=== PATIENT | female | born 1930 | race African-American/Black ===

== ENCOUNTER 2017-08-06 13:56 | Inpatient (IN) | payer MEDICARE, MEDICAID ==
[~2017-08-06] VITALS: Ht 152.4 cm; Wt 69.5 kg
[~2017-08-06 13:56] MED LIST: AMIN30LI28 PO; B CO1CAP4 PO; BRIM155OS OU; CALC1TAB92 PO; DOCU100C98 PO; GABA-529 PO; LEVO500T2 PO; PERCT PO; RISP.5 PO; SERT50TA12 PO; TRAV2.5D5 OU
[2017-08-06] MEDS ORDERED: SODIUM CHLORIDE 0.9% 1,000 ML IV ONE (14:45)
[2017-08-06 15:46] LABS: BASOPHILS # (AUTO) 0.01 K/uL (0.00-0.20); BASOPHILS % (AUTO) 0.2 % (0.0-2.0); EOSINOPHILS # (AUTO) 0.15 K/uL (0.00-0.70); EOSINOPHILS % (AUTO) 1.69 % (1.0-6.0); HEMATOCRIT 34.3 % (36-46); HEMOGLOBIN 11.5 g/dL (12.0-16.0); LYMPHOCYTES # (AUTO) 0.5 K/uL (1.0-4.8); LYMPHOCYTES % (AUTO) 5.4 % (22.0-44.0); MEAN CORPUSCULAR HEMOGLOBIN 29.4 pg (26.0-34.0); MEAN CORPUSCULAR HGB CONC 33.5 G/dL (31.0-37.0); MEAN CORPUSCULAR VOLUME 88 fL (80-100); MONOCYTES # (AUTO) 0.8 K/uL (0.1-1.0); MONOCYTES % (AUTO) 8.7 % (2.0-9.0); NEUTROPHILS # (AUTO) 7.5 K/uL (1.8-7.7); NEUTROPHILS % (AUTO) 84.1 % (40.0-70.0); PLATELET COUNT (AUTO) 105 K/uL (150-450); RED BLOOD CELL COUNT(AUTO) 3.91 MIL/uL (4.00-5.20); RED CELL DISTRIBUTION WIDTH 13.6 % (11.5-14.5)
[2017-08-06 15:58] LABS: CALCIUM, TOTAL 8.9 mg/dL (8.8-10.5); CREATININE 3.56 mg/dL (0.60-1.30); POTASSIUM 4.2 mmol/L (3.5-5.1)
[2017-08-06 16:03] LABS: ALBUMIN 3.7 g/dL (3.4-5.0); BILIRUBIN,TOTAL 0.7 mg/dL (0.1-1.0); TOTAL PROTEIN, SERUM 7.6 g/dL (6.4-8.2)
[2017-08-06] MEDS ORDERED: ACETAMINOPHEN 325 MG TABLET PO PRN (17:15)
[2017-08-06] MEDS ORDERED: ONDANSETRON HCL 4 MG/2 ML VIAL IVP PRN (17:15)
[2017-08-06] MEDS ORDERED: 0.9% SODIUM CHLORIDE 10 ML SYRINGE IVP PRN (17:15)
[2017-08-06 17:49] LABS: WHITE BLOOD COUNT (AUTO) 9.5 K/uL (4.5-11.0)
[2017-08-06 20:18] VITALS: BP 126/63
[2017-08-06] MEDS ORDERED: CINA30 PO (22:56)
[2017-08-06] MEDS ORDERED: CHOL100034 PO (22:56)
[2017-08-06] MEDS ORDERED: RISP0.5T61 PO (22:56)
[2017-08-06] MEDS ORDERED: CRAN450C PO (22:56)
[2017-08-06] MEDS ORDERED: CLON0.1T PO (22:56)
[2017-08-07 00:36] VITALS: BP 108/42
[2017-08-07 05:44] VITALS: BP 108/61
[2017-08-07 06:54] LABS: BASOPHILS % (AUTO) 0.3 % (0.0-2.0); EOSINOPHILS % (AUTO) 2.7 % (1.0-6.0); HEMOGLOBIN 10.5 g/dL (12.0-16.0); LYMPHOCYTES # (AUTO) 1.3 K/uL (1.0-4.8); LYMPHOCYTES % (AUTO) 13.2 % (22.0-44.0); MEAN CORPUSCULAR HEMOGLOBIN 29.7 pg (26.0-34.0); MEAN CORPUSCULAR HGB CONC 33.9 G/dL (31.0-37.0); MEAN CORPUSCULAR VOLUME 88 fL (80-100); MONOCYTES # (AUTO) 1.2 K/uL (0.1-1.0); MONOCYTES % (AUTO) 12.4 % (2.0-9.0); NEUTROPHILS # (AUTO) 6.9 K/uL (1.8-7.7); NEUTROPHILS % (AUTO) 71.4 % (40.0-70.0); RED BLOOD CELL COUNT(AUTO) 3.53 MIL/uL (4.00-5.20)
[2017-08-07 06:58] LABS: WHITE BLOOD COUNT (AUTO) 10.5 K/uL (4.5-11.0)
[2017-08-07 07:02] LABS: PLATELET COUNT (AUTO) 110 K/uL (150-450)
[2017-08-07 07:22] LABS: ALBUMIN 3.1 g/dL (3.4-5.0); BILIRUBIN,TOTAL 0.6 mg/dL (0.1-1.0); CALCIUM, TOTAL 8.7 mg/dL (8.8-10.5); CREATININE 5.16 mg/dL (0.60-1.30); TOTAL PROTEIN, SERUM 6.3 g/dL (6.4-8.2)
[2017-08-07 09:02] VITALS: BP 105/50
[2017-08-07 11:19] VITALS: BP 103/52
[2017-08-07] MEDS: AMINO ACIDS/PROTEIN HYDROLYS 30 ML TUBE PO SCH ×2 (12:00→18:00)
[2017-08-07] MEDS: CALCIUM ACETATE 667 MG CAPSULE PO SCH ×2 (12:58→18:36)
[2017-08-07] MEDS: BRIMONIDINE TARTRATE 0.2% 5 ML OPHTHALMIC SOLUTION OU SCH ×2 (12:58→21:14)
[2017-08-07] MEDS: FOLIC ACID 1 MG TABLET PO SCH (12:58)
[2017-08-07] MEDS: VITAMIN B COMP/VIT C/FOLIC ACID CAPSULE PO SCH (12:58)
[2017-08-07 15:44] VITALS: BP 110/62
[2017-08-07 19:58] VITALS: BP 111/46
[2017-08-07] MEDS ORDERED: LATANOPROST 0.005% 2.5 ML OPHTHALMIC SOLUTION OU SCH (21:00)
[2017-08-07] MEDS ORDERED: DEXTRAN 70 0.1%/HYPROMELL 0.3% 0.9 ML OPHTHALMIC SOLUTION [PF] OU SCH (21:00)
[2017-08-07] MEDS: SERTRALINE HCL 50 MG TABLET PO SCH (21:14)
[2017-08-07] MEDS: DOCUSATE SODIUM 100 MG CAPSULE PO SCH (21:14)
[2017-08-07] MEDS: HYPROMELLOSE 0.5% 15 ML OPHTHALMIC SOLUTION OU SCH (21:14)
[2017-08-07] MEDS: RisperiDONE 1 MG TABLET PO SCH (21:15)
[2017-08-08 00:42] VITALS: BP 113/63
[2017-08-08 05:29] VITALS: BP 124/60
[2017-08-08 06:04] LABS: BASOPHILS % (AUTO) 0.5 % (0.0-2.0); EOSINOPHILS % (AUTO) 4.5 % (1.0-6.0); HEMATOCRIT 31.3 % (36-46); HEMOGLOBIN 10.8 g/dL (12.0-16.0); LYMPHOCYTES # (AUTO) 1.9 K/uL (1.0-4.8); LYMPHOCYTES % (AUTO) 22.4 % (22.0-44.0); MEAN CORPUSCULAR HGB CONC 34.3 G/dL (31.0-37.0); MEAN CORPUSCULAR VOLUME 87 fL (80-100); MONOCYTES # (AUTO) 1.7 K/uL (0.1-1.0); MONOCYTES % (AUTO) 19.3 % (2.0-9.0); NEUTROPHILS # (AUTO) 4.6 K/uL (1.8-7.7); NEUTROPHILS % (AUTO) 53.3 % (40.0-70.0); RED BLOOD CELL COUNT(AUTO) 3.59 MIL/uL (4.00-5.20); RED CELL DISTRIBUTION WIDTH 14.3 % (11.5-14.5); WHITE BLOOD COUNT (AUTO) 8.6 K/uL (4.5-11.0)
[2017-08-08 06:32] LABS: CALCIUM, TOTAL 8.8 mg/dL (8.8-10.5); CREATININE 6.73 mg/dL (0.60-1.30); PHOSPHORUS 5.5 mg/dL (2.5-4.9); POTASSIUM 5.2 mmol/L (3.5-5.1)
[2017-08-08 06:55] LABS: PLATELET COUNT (AUTO) 98 K/uL (150-450)
[2017-08-08 07:54] VITALS: BP 110/58
[2017-08-08] MEDS ORDERED: CINACALCET HCL 30 MG TABLET PO SCH (08:00)
[2017-08-08] MEDS: AMINO ACIDS/PROTEIN HYDROLYS 30 ML TUBE PO SCH ×2 (08:00→12:00)
[2017-08-08] MEDS: RisperiDONE 1 MG TABLET PO SCH (08:25)
[2017-08-08] MEDS: SERTRALINE HCL 50 MG TABLET PO SCH (08:25)
[2017-08-08] MEDS: DOCUSATE SODIUM 100 MG CAPSULE PO SCH (08:25)
[2017-08-08] MEDS: CALCIUM ACETATE 667 MG CAPSULE PO SCH ×2 (08:25→12:28)
[2017-08-08] MEDS: HYPROMELLOSE 0.5% 15 ML OPHTHALMIC SOLUTION OU SCH ×2 (08:26→17:17)
[2017-08-08] MEDS: FOLIC ACID 1 MG TABLET PO SCH (08:26)
[2017-08-08] MEDS: BRIMONIDINE TARTRATE 0.2% 5 ML OPHTHALMIC SOLUTION OU SCH (08:26)
[2017-08-08] MEDS: VITAMIN B COMP/VIT C/FOLIC ACID CAPSULE PO SCH (08:30)
[2017-08-08 08:58] LABS: RBC MORPHOLOGY COMMENT NORMAL RBC MORPH
[2017-08-08] MEDS ORDERED: VITAMIN B COMP/VIT C/FOLIC ACID CAPSULE PO SCH (09:00)
[2017-08-08 11:36] VITALS: BP 96/60
[2017-08-08] MEDS ORDERED: SODIUM CHLORIDE 0.9% 1,000 ML IV ONE (12:34)
[2017-08-08 15:10] VITALS: BP 128/58
[2017-08-08] MEDS ORDERED: LIDOCAINE HCL/PF 1% 2 ML VIAL INJ ONE (17:29)
[2017-08-09] MEDS ORDERED: PARICALCITOL 5 MCG/1 ML VIAL IVP SCH (09:00)
[2017-08-09] MEDS ORDERED: EPOETIN ALFA 10,000 UNITS/ML VIAL SQ SCH (09:00)
== END 2017-08-08 17:30 | DRG 882 ==
LOC: EMS 13:58 → 5S 18:54
PROVIDERS: ADMIT Family Medicine; ATTEND Family Medicine
PROC: 5A1D70Z Performance of Urinary Filtration, Intermittent, Less than 6 Hours Per Day (ICD-10-PCS; principal; 2017-08-08)
DX: F45.8 Other somatoform disorders (principal); E44.1 Mild protein-calorie malnutrition; G62.9 Polyneuropathy, unspecified; I12.0 Hypertensive chronic kidney disease with stage 5 chronic kidney disease or end stage renal disease; N18.6 End stage renal disease; F32.9 Major depressive disorder, single episode, unspecified; E78.5 Hyperlipidemia, unspecified; F03.90 Unspecified dementia, unspecified severity, without behavioral disturbance, psychotic disturbance, mood disturbance, and anxiety; H54.8 Legal blindness, as defined in USA; K21.9 Gastro-esophageal reflux disease without esophagitis; Z86.73 Personal history of transient ischemic attack (TIA), and cerebral infarction without residual deficits; Z99.2 Dependence on renal dialysis; Z87.01 Personal history of pneumonia (recurrent)
CPT/HCPCS: 51701; 70450; 82948; 84100; 87081; 90935; 93005; 96360; 96361; 97162; 99285; J2501; J3490; J7030

== ENCOUNTER 2018-07-03 09:57 | Emergency (ER) | payer MEDICARE, MEDICAID ==
[~2018-07-03] VITALS: Ht 157.5 cm; Wt 68.0 kg
[~2018-07-03 09:57] MED LIST changes: +CHOL100034 PO; +CINA30 PO; +CLON0.1T PO; +CRAN450C PO; -GABA-529 PO; -LEVO500T2 PO; -PERCT PO; -RISP.5 PO; +RISP0.5T61 PO
[2018-07-03] MEDS ORDERED: DSS100 PO ×2 (10:25)
[2018-07-03] MEDS ORDERED: MELA5TAB12 PO (10:25)
[2018-07-03] MEDS ORDERED: EMLA TP (10:25)
[2018-07-03] MEDS ORDERED: ROPI2TAB9 PO (10:25)
[2018-07-03] MEDS ORDERED: SEVEC800 PO (10:25)
[2018-07-03 12:11] LABS: CREATININE 6.15 mg/dL (0.60-1.30); POTASSIUM 4.4 mmol/L (3.5-5.1)
[2018-07-03 12:16] LABS: ALBUMIN 3.2 g/dL (3.4-5.0); BILIRUBIN,TOTAL 0.5 mg/dL (0.1-1.0); TOTAL PROTEIN, SERUM 6.6 g/dL (6.4-8.2)
[2018-07-03 13:31] VITALS: BP 113/86
== END 2018-07-03 13:57 | disposition home or self-care (01) ==
LOC: EMS 09:58
DX: R10.13 Epigastric pain (principal); R11.2 Nausea with vomiting, unspecified; I10 Essential (primary) hypertension; F32.9 Major depressive disorder, single episode, unspecified
CPT/HCPCS: 93005